=== PATIENT | female | born 1960 | race Caucasian/White ===

== ENCOUNTER 2020-06-10 13:42 | Emergency (ER) | payer OTHER ==
--- NOTE | 2020-06-10 14:31 | ER Document Report ---
ED Medical Screen (RME) - General Chief Complaint: Arm Problem Stated Complaint: ARM NUMBNESS Time Seen by Provider: 06/10/20 14:22 Mode of Arrival: Ambulatory Information source: Patient Notes: HPI; 59-year-old patient presents emergency room complaining of persistent worsening left shoulder pain that radiates into her left arm for the past several months. She denies any trauma or injury. 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 She denies any chest pain, shortness of breath, no difficulty breathing. Has been taking ibuprofen with some relief. States now she is dropping things when she tries to lift things with her left arm. PE: Alert and oriented x3. Mild distress noted. Lungs: Clear to auscultation without rales, rhonchi, wheezes. Heart: Regular rate rhythm without murmurs, rubs, gallops. Negative fast exam. Tenderness over the left trapezius muscle. Tenderness over the distal aspect of the left clavicle without any obvious deformity noted. Backup Administrative Coordinator strength equal and adequate bilaterally. Positive left radial pulse. Normal sensation to bilateral upper extremities. I have greeted and performed a rapid initial assessment of this patient. A comprehensive ED assessment and evaluation of the patient, analysis of test results and completion of the medical decision making process will be conducted by additional ED providers. I have specifically instructed the patient or family members with the patient to immediately return to any nursing staff should anything change in the patient's condition or with their chief complaint. TRAVEL OUTSIDE OF THE [place] IN LAST 30 DAYS: No - Related Data Allergies/Adverse Reactions: No Known Allergies Allergy (Verified 06/10/20 14:20) Home Medications: prozac, motrin, omega XL Past Medical History - Social History Frequency of alcohol use: None Drug Abuse: None Physical Exam - Vital signs Vitals: Temp Pulse Resp BP Pulse Ox 98.5 F 94 16 164/90 H 97 06/10/20 13:51 06/10/20 13:51 06/10/20 13:51 06/10/20 13:51 06/10/20 13:51 Course - Vital Signs Vital signs: Temp Pulse Resp BP Pulse Ox 98.5 F 94 16 164/90 H 97 06/10/20 13:51 06/10/20 13:51 06/10/20 13:51 06/10/20 13:51 06/10/20 13:51
[2020-06-10 15:21] LABS: ABSOLUTE BASOPHILS # (AUTO) 0.1 10^3/uL (0.0-0.2); ABSOLUTE EOSINOPHILS # (AUTO) 0.1 10^3/uL (0.0-0.6); ABSOLUTE LYMPHOCYTES (AUTO) 2.3 10^3/uL (0.5-4.7); ABSOLUTE MONOCYTES (AUTO) 0.4 10^3/uL (0.1-1.4); ABSOLUTE NEUT (AUTO) 3.5 10^3/uL (1.7-8.2); BASOPHILS % (AUTO) 0.8 % (0-2); EOSINOPHILS % (AUTO) 2.3 % (0-6); HEMATOCRIT 39.1 % (36.0-47.0); HEMOGLOBIN 13.7 g/dL (12.0-15.5); LYMPHOCYTES % (AUTO) 35.2 % (13-45); MEAN CORPUSCULAR HEMOGLOBIN 31.9 pg (27.0-33.4); MEAN CORPUSCULAR VOLUME 91 fl (80-97); MONOCYTES % (AUTO) 6.8 % (3-13); PLATELET COUNT 386 10^3/uL (150-450); RED BLOOD COUNT 4.28 10^6/uL (3.72-5.28); SEGMENTED NEUTROPHILS % (AUTO) 54.9 % (42-78); TOTAL CELLS COUNTED % (AUTO) 100 %; WHITE BLOOD COUNT 6.4 10^3/uL (4.0-10.5)
--- NOTE | 2020-06-10 15:33 | RADIOLOGY REPORT (SQ) ---
EXAM DESCRIPTION: CT CERVICAL SPINE WITHOUT IMAGES COMPLETED DATE/TIME: 06/10/2020 3:12 pm REASON FOR STUDY: parathesia COMPARISON: None. TECHNIQUE: Axial images acquired through the cervical spine without intravenous contrast. Images re viewed with lung, soft tissue and bone windows. Reconstructed coronal and sagittal MPR images review ed. Images stored on PACS. All CT scanners at this facility use dose modulation, iterative reconstruction, and/or weight based d osing when appropriate to reduce radiation dose to as low as reasonably achievable (ALARA). [facility]: Dose Right [facility]: CareDose [facility]: Dose Right [facility]: Teradose 4D [facility]: Macoscope RADIATION DOSE: CT Rad equipment meets quality standard of care and radiation dose reduction techniq ues were employed. CTDIvol: 17.3 mGy. DLP: 324 mGy-cm. mGy. LIMITATIONS: None. FINDINGS: ALIGNMENT: Mild malalignment C4-5. MINERALIZATION: Normal. VERTEBRAL BODIES: No fractures or dislocation. DISCS: Multilevel disc space narrowing with osteophytes. FACETS, LATERAL MASSES, POSTERIOR ELEMENTS: Facet arthropathy. No fractures. No dislocation. No ac [place] findings. HARDWARE: None in the spine. VISUALIZED RIBS: No fractures. LUNG APICES AND SOFT TISSUES: No significant or acute findings. OTHER: No other significant finding. IMPRESSION: CHRONIC DEGENERATIVE CHANGES. NO ACUTE FINDINGS. TECHNICAL DOCUMENTATION: JOB ID: [id number] Quality ID # [id number]: Final reports with documentation of one or more dose reduction techniques (e.g., Au tomated exposure control, adjustment of the mA and/or kV according to patient size, use of iterative reconstruction technique) 2010 [employer]- All Rights Reserved Reading location - IP/workstation name: [email or web address]
[2020-06-10 15:39] LABS: ALBUMIN 4.5 g/dL (3.5-5.0); ALKALINE PHOSPHATASE 83 U/L (38-126); ANION GAP 10 (5-19); ASPARTATE AMINO TRANSFERASE 25 U/L (14-36); BILIRUBIN,DIRECT 0.3 mg/dL (0.0-0.4); BILIRUBIN,TOTAL 0.4 mg/dL (0.2-1.3); BLOOD UREA NITROGEN 15 mg/dL (7-20); CALCIUM 9.2 mg/dL (8.4-10.2); CARBON DIOXIDE 25 mmol/L (22-30); CHLORIDE 104 mmol/L (98-107); GLUCOSE 94 mg/dL (75-110); POTASSIUM 4.5 mmol/L (3.6-5.0); TOTAL PROTEIN 7.6 g/dL (6.3-8.2)
--- NOTE | 2020-06-10 16:00 | RADIOLOGY REPORT (SQ) ---
EXAM DESCRIPTION: CHEST SINGLE VIEW IMAGES COMPLETED DATE/TIME: 06/10/2020 3:19 pm REASON FOR STUDY: arm pain COMPARISON: None. NUMBER OF VIEWS: One view. TECHNIQUE: Single frontal radiographic view of the chest acquired. LIMITATIONS: None. FINDINGS: LUNGS AND PLEURA: No opacities, masses or pneumothorax. No pleural effusion. MEDIASTINUM AND HILAR STRUCTURES: No masses. Contour normal. HEART AND VASCULAR STRUCTURES: Heart normal in size. Normal vasculature. BONES: No acute findings. HARDWARE: None in the chest. OTHER: No other significant finding. IMPRESSION: NO SIGNIFICANT RADIOGRAPHIC FINDING IN THE CHEST. TECHNICAL DOCUMENTATION: JOB ID: [id number] 2010 [employer] All Rights Reserved Reading location - IP/workstation name: [email or web address]
--- NOTE | 2020-06-10 18:25 | EKG REPORT ---
SEVERITY:- NORMAL ECG - SINUS RHYTHM : Confirmed by: Virginia Milner 10-Jun-2020 18:24:59
[2020-06-10] MEDS ORDERED: KETOROLAC TROMETHAMINE 60 MG/2 ML SDV IM ONE (20:49)
[2020-06-10 22:29] VITALS: BP 160/88
--- NOTE | 2020-06-10 23:17 | ER Document Report ---
ED General - General Chief Complaint: Arm Problem Stated Complaint: ARM NUMBNESS Time Seen by Provider: 06/10/20 14:22 Primary Care Provider: PAYAM GOULD JR, DO [ACTIVE PROVISIONAL STAFF] - Follow up as needed Mode of Arrival: Ambulatory TRAVEL OUTSIDE OF THE [place] IN LAST 30 DAYS: No - HPI Notes: Patient is a 59-year-old female and presents for worsening left shoulder pain for the past three months. Patient states her pain began at the end of February and was mild at onset. She states her pain made it difficult to put her bra on and to brush her hair. She limited her ROM of her left shoulder and even worse a sling on occasion. She now reports significant pain to her left shoulder and is unable to move it. She reports swelling and numbness to her left shoulder and arm. She reports radiating pain to her left elbow. Patient has a hx of oste omylitis to her right clavicle on year ago and is concerned this might be the cause of her left shoulder pain. She denies fever, chills, vomiting, abdominal pain, chest pain and SOB. Patient is visiting her son from [place] and doesn't return home for another 12 days. - Related Data Allergies/Adverse Reactions: No Known Allergies Allergy (Verified 06/10/20 14:20) Home Medications: prozac, motrin, omega XL Past Medical History - General Information source: Patient - Social History Smoking Status: Never Smoker Frequency of alcohol use: None Drug Abuse: None Family History: Reviewed & Not Pertinent Review of Systems - Review of Systems Constitutional: No symptoms reported EENT: No symptoms reported Cardiovascular: No symptoms reported Respiratory: No symptoms reported Gastrointestinal: No symptoms reported Genitourinary: No symptoms reported Female Genitourinary: No symptoms reported Musculoskeletal: See HPI Skin: No symptoms reported Hematologic/Lymphatic: No symptoms reported Neurological/Psychological: No symptoms reported Physical Exam - Vital signs Vitals: Temp Pulse Resp BP Pulse Ox 98.5 F 94 16 164/90 H 97 06/10/20 13:51 06/10/20 13:51 06/10/20 13:51 06/10/20 13:51 06/10/20 13:51 - Notes Notes: PHYSICAL EXAMINATION: VITALS: Vitals reviewed and within normal limits. GENERAL: Well-appearing, well-nourished and in no acute distress. HEAD: Atraumatic, normocephalic. EYES: Pupils equal round and reactive to light, extraocular movements intact, sclera anicteric, conjunctiva are normal. ENT: nares patent, oropharynx clear without exudates. Moist mucous membranes. NECK: Normal range of motion, supple without lymphadenopathy. LUNGS: Breath sounds clear to auscultation bilaterally and equal. No wheezes rales or rhonchi. HEART: Regular rate and rhythm without murmurs. ABDOMEN: Soft, nontender, normoactive bowel sounds. No guarding, no rebound. No masses appreciated. EXTREMITIES: ROM of left shoulder severely limited secondary to pain. Left trapezius spasmed and tight with tenderness to palpation. Diffuse tenderness to the left shoulder. Clavicles bilaterally nontender. No warmth or erythema noted to the left shoulder. Normal range of motion of RUE and BLE, no pitting or edema. No cyanosis. Sensation and strength intact. Radial pulses 2+ bilaterally. Cap refill <2 seconds BUE. NEUROLOGICAL: No focal neurological deficits. Moves all extremities spontaneously and on command. PSYCH: Normal mood, normal affect. SKIN: Warm, Dry, normal turgor, no rashes or lesions noted. Course - Re-evaluation Re-evalutation: Patient is a 59-year-old female with a history of right clavicle osteomyelitis who presents with left shoulder pain for the past 3 months. Patient is afebrile and hypertensive. On exam, left trapezius muscle is spasmed and tight with limited ROM of the left shoulder secondary to pain. WBC count 6.4 and normal. CXR unremarkable and CT C-spine shows chronic degenerative changes. Results reviewed with the patient in detail. Patient states when she had osteomylitis last year she was afebrile with a negative WBC but had a positive ESR. I recommended ordering an ESR and CRP at this time but patient refused and would like to go home. Based on the findings, I am suspicious of left rotator cuff pathology and recommend patient follow up with orthopedics as soon as possible. Less suspicion for osteomylitis as patient is afebrile with a normal WBC. Muscle relaxer will prescribed and patient will be discharged home. Detailed return precautions given. - Vital Signs Vital signs: Temp Pulse Resp BP Pulse Ox 99.7 F 87 20 160/88 H 95 06/10/20 20:30 06/10/20 22:28 06/10/20 22:28 06/10/20 22:28 06/10/20 22:28 - Laboratory Result Diagrams: 06/10/20 14:50 06/10/20 14:50 - Diagnostic Test Radiology reviewed: Reports reviewed Radiology results interpreted by me: Cervical Spine CT 06/10/20 14:27 IMPRESSION: CHRONIC DEGENERATIVE CHANGES. NO ACUTE FINDINGS. Chest X-Ray 06/10/20 14:28 IMPRESSION: NO SIGNIFICANT RADIOGRAPHIC FINDING IN THE CHEST. - EKG Interpretation by Me Additional EKG results interpreted by me: Sinus rhythm with a rate 79. QTc 482. Normal axis. No T wave inversion or ST segment changes in consecutive leads. Discharge - Discharge Clinical Impression: Muscle spasm Left shoulder pain Qualifiers: Chronicity: unspecified Qualified Code(s): M25.512 - Pain in left shoulder Condition: Stable Disposition: HOME, SELF-CARE Additional Instructions: Take medication as prescribed. Apply heat to muscle for relief. Continue to take ibuprofen as needed for pain relief. Follow up with Orthopedics as soon as you get home. Try moving you shoulder as much as tolerated. Return if you begin to have fever, warmth to your left shoulder, persistent vomiting, or worsening pain. Muscle Relaxers Muscle relaxing medications are usually prescribed for acute muscle spasm or injury to the neck and back. They are often combined with antiinflammatory pain medication for increased relief. You may stop the muscle relaxer when the pain and stiffness have improved. Start the medication again if spasms recur. Muscle relaxers may cause drowsiness, especially with the first dose. Do not operate machinery or drive while under the effects of the medication. Most muscle relaxers last up to 24 hours. Do not combine the medication with alcohol. Prescriptions: Diazepam [Valium 5 mg Tablet] 1 - 2 tab PO TID PRN #15 tablet PRN Reason: Referrals: PAYAM GOULD JR, DO [ACTIVE PROVISIONAL STAFF] - Follow up as needed
[2020-06-10] MEDS ORDERED: KETOROLAC TROMETHAMINE 60 MG/2 ML SDV ONE (23:21)
== END 2020-06-10 23:55 | disposition home or self-care (01) ==
LOC: ER 13:42
DX: M25.512 Pain in left shoulder (principal); M62.838 Other muscle spasm; M25.522 Pain in left elbow; Z79.899 Other long term (current) drug therapy; R20.0 Anesthesia of skin
CPT/HCPCS: 93005; 99285; 96372; 36415; 85025; 80053; 84484; 71045; 72125; 93010; J1885